=== PATIENT | male | born 1960 | race Caucasian/White ===

== ENCOUNTER → 2017-03-06 | Outpatient (CLI) | payer OTHER ==
[~2017-03-06] MED LIST: ALBU6.7H INH; ALPR0.5T99 PO; AMIT25TA20 PO; ATEN1TAB73 PO; BACL20TA PO; CLON.1 PO; DUONI NEB; PERC5TAB12 PO; SYMB80AE NEB; ZOCO40TA PO
--- NOTE | 2017-03-09 10:41 | RSPPFT ---
DATE OF PROCEDURE: 03/06/17 COMMENTS: Spirometry shows FVC of 2.0 at 43% of predicted, FEV1 of 0.6 at 18%, FEV1/FVC ratio is decreased. Flow is decreased at FEF 25, FEF 50, FEF 75 and FEF 25-75. There is no response after bronchodilator treatment. Lung volumes show residual volume is increased. TLC is increased. Flow volume loop indicates an obstructive pattern. 6-minute walk test shows de-saturation. IMPRESSION: 1. Very severe obstructive lung disease. 2. No response after bronchodilator treatment. 3. Lung volumes show hyperinflation and air trapping. 4. 6-minute walk test shows de-saturation.
== END ==
LOC: PHRSP 10:28
PROVIDERS: ATTEND Specialist
DX: J44.9 Chronic obstructive pulmonary disease, unspecified (principal)
CPT/HCPCS: 94060; 94620; 94726; 94729

== ENCOUNTER 2017-04-10 09:50 | Emergency (ER) | payer OTHER ==
[~2017-04-10] VITALS: Ht 177.8 cm; Wt 83.0 kg
[2017-04-10 09:52] VITALS: BP 170/101; PULSE 131; RESP 20; TEMP 98.5; O2SAT 97
[2017-04-10 10:04] VITALS: BP 138/103; PULSE 137; RESP 22; TEMP 98.6; O2SAT 98
[2017-04-10 10:07] VITALS: BP 138/103; PULSE 134
[2017-04-10] MEDS ORDERED: SODIUM CHLORIDE 0.9% FLUSH 10 ML FLUSH IVF PRN (10:15)
[2017-04-10] MEDS ORDERED: SODIUM CHLORID 0.9% 500 ML INJ 500 ML IV ONE (10:30)
[2017-04-10] MEDS ORDERED: METOPROLOL TARTRATE 5 MG/5 ML VIAL IV PUSH ONE (10:30)
--- NOTE | 2017-04-10 10:33 | PD ---
HPI Chief Complaint: palpitations Time Seen by Provider: 10:04 Travel History International Travel<30 days: No Contact w/Intl Traveler<30days: No Traveled to known affect area: No History of Present Illness HPI 57-year-old male states he had a long walk to pulmonary rehabilitation and when he got there his heart rate was significantly elevated in the 150s so they wanted him to come here. He states he has not taken his blood pressure medication yet this morning. He denies active complaints now that he is in bed. He states when his heartbeat felt fast he could feel it. He states that he specifically has no shortness of breath, chest pain, increase in his inhaler use or other complaints at this moment. He states that he is working on getting evaluated for a lung transplant. He states he's on 2 L of oxygen most the time. Severity is 150s. Duration is unknown. PFSH Past Medical History Arthritis: Yes Depression: Yes High Cholesterol: Yes COPD: Yes Diminished Hearing: No Hypertension: Yes Musculoskeletal: Yes (DJD, lumbar radiculopathy) Respiratory: Yes Past Surgical History Abdominal Surgery: Yes (COLONOSCOPY - SIGMOID POLYPS) AICD: No Joint Replacement: No Oral Surgery: Yes (SINUS PAPILLOMA REMOVED) Pacemaker: No Other Surgery: Yes (TUMOR REMOVED FROM SINUS AREA 02/12/12) Social History Alcohol Use: No Tobacco Use: No (pt states he quit 6 mths ago) Substance Use: No Allergies-Medications (Allergen,Severity, Reaction): Coded Allergies: Aspirin (Verified Allergy, Unknown, 04/10/17) Effexor (Verified Adverse Reaction, Severe, SEVERE DEPRESSION, 08/01/15) Reported Meds & Prescriptions Reported Meds & Active Scripts Active Review of Systems Except as stated in HPI: all other systems reviewed are Neg Physical Exam Narrative GENERAL: Well-nourished, well-developed patient. SKIN: Warm and dry. HEAD: Normocephalic and atraumatic. EYES: No injection or drainage. ENT: No nasal drainage noted. NECK: Supple, trachea midline. CARDIOVASCULAR: Tachycardic rate and regular rhythm RESPIRATORY: Breath sounds equal bilaterally. No accessory muscle use. GASTROINTESTINAL: Abdomen soft, non-tender, nondistended. EXTREMITIES: No edema. NEUROLOGICAL: Awake and alert. Moves all extremities. Normal speech. Data Data Last Documented VS Vital Signs Date Time Temp Pulse Resp B/P Pulse Ox O2 Delivery O2 Flow Rate FiO2 04/10/17 12:48 99 04/10/17 12:17 113 145/92 04/10/17 12:17 Nasal Cannula 2 04/10/17 11:20 22 04/10/17 10:04 98.6 Orders Electrocardiogram (04/10/17 10:09) Ckmb (Isoenzyme) Profile (04/10/17 10:09) Complete Blood Count With Diff (04/10/17 10:09) Comprehensive Metabolic Panel (04/10/17 10:09) Magnesium (Mg) (04/10/17 10:09) Prothrombin Time / Inr (Pt) (04/10/17 10:09) Act Partial Throm Time (Ptt) (04/10/17 10:09) Troponin I (04/10/17 10:09) Chest, Single Ap (04/10/17 10:09) Ecg Monitoring (04/10/17 10:09) Bilateral Bp Monitoring (04/10/17 10:09) Iv Access Insert/Monitor (04/10/17 10:09) Oximetry (04/10/17 10:09) Sodium Chloride 0.9% Flush (Ns Flush) (04/10/17 10:15) Lactic Acid Sepsis Protocol (04/10/17 10:12) Urinalysis - C+S If Indicated (04/10/17 10:12) Blood Culture (04/10/17 10:12) Sodium Chlorid 0.9% 500 Ml Inj (Ns 500 M (04/10/17 10:30) Metoprolol Tartrate Inj (Lopressor Inj) (04/10/17 10:30) Thyroid Stimulating Hormone (04/10/17 10:24) Electrocardiogram (04/10/17 ) Labs Laboratory Tests Test 04/10/17 04/10/17 10:20 11:25 White Blood Count 15.9 TH/MM3 Red Blood Count 4.51 MIL/MM3 Hemoglobin 13.7 GM/DL Hematocrit 40.1 % Mean Corpuscular Volume 88.9 FL Mean Corpuscular Hemoglobin 30.3 PG Mean Corpuscular Hemoglobin 34.1 % Concent Red Cell Distribution Width 14.2 % Platelet Count 239 TH/MM3 Mean Platelet Volume 8.4 FL Neutrophils (%) (Auto) 88.4 % Lymphocytes (%) (Auto) 6.3 % Monocytes (%) (Auto) 4.8 % Eosinophils (%) (Auto) 0.3 % Basophils (%) (Auto) 0.2 % Neutrophils # (Auto) 14.1 TH/MM3 Lymphocytes # (Auto) 1.0 TH/MM3 Monocytes # (Auto) 0.8 TH/MM3 Eosinophils # (Auto) 0.0 TH/MM3 Basophils # (Auto) 0.0 TH/MM3 CBC Comment DIFF FINAL Differential Comment Prothrombin Time 9.9 SEC Prothromb Time International 0.9 RATIO Ratio Activated Partial 26.6 SEC Thromboplast Time Sodium Level 138 MEQ/L Potassium Level 3.4 MEQ/L Chloride Level 104 MEQ/L Carbon Dioxide Level 25.9 MEQ/L Anion Gap 8 MEQ/L Blood Urea Nitrogen 16 MG/DL Creatinine 0.80 MG/DL Estimat Glomerular Filtration 99 ML/MIN Rate Random Glucose 105 MG/DL Lactic Acid Level 2.0 mmol/L Calcium Level 8.6 MG/DL Magnesium Level 1.6 MG/DL Total Bilirubin 0.4 MG/DL Aspartate Amino Transf 9 U/L (AST/SGOT) Alanine Aminotransferase 24 U/L (ALT/SGPT) Alkaline Phosphatase 76 U/L Total Creatine Kinase 39 U/L Troponin I LESS THAN 0.02 NG/ML Total Protein 7.0 GM/DL Albumin 3.8 GM/DL Thyroid Stimulating Hormone 2.260 uIU/ML 3rd Gen Urine Color YELLOW Urine Turbidity CLEAR Urine pH 6.0 Urine Specific [place] 1.005 Urine Protein NEG mg/dL Urine Glucose (UA) NEG mg/dL Urine Ketones NEG mg/dL Urine Occult Blood TRACE Urine Nitrite NEG Urine Bilirubin NEG Urine Urobilinogen LESS THAN 2.0 MG/DL Urine Leukocyte Esterase NEG Urine RBC 2 /hpf Urine WBC LESS THAN 1 /hpf Microscopic Urinalysis Comment CATH-CULT NOT IND MDM Medical Decision Making Medical Screen Exam Complete: Yes Emergency Medical Condition: Yes Medical Record Reviewed: Yes (past history confirmed) Interpretation(s) EKG is sinus tachycardia at 135 without STEMI criteria Repeat EKG is sinus tachycardia [address] segment elevation or depression or consecutive T-wave inversion CBC & BMP Diagram 04/10/17 10:20 Last 24 hours Impressions Chest X-Ray 04/10/17 1009 Signed Impressions: Service Date/Time: Monday, April 10, 2017 10:37 - CONCLUSION: Normal examination except for chronic diffuse interstitial lung disease. Boy Jordan MD Differential Diagnosis Anemia, renal failure, electrolyte abnormality, hyperthyroidism, dehydration, A. fib, SVT Narrative Course Will check blood work, chest x-ray, EKG and dose with IV fluids and metoprolol and reevaluate Blood work, chest x-ray without emergent findings, mild leukocytosis. Heart rate has improved and patient wanting to go home still asymptomatic. We'll discuss with his primary doctor Patient denies any new complaints and states that they are feeling better. Patient happy with care, all questions answered. Patient knows that follow up is incumbent on them and to return to the emergency room immediately if new or worsening symptoms develop. Patient given strict return precautions, vitals reviewed and are normal, agrees to further workup as an outpatient. Physician Communication Physician Communication dr doshi states to place on coreg 3.125mg po bid for 2 weeks and he will see in the office Diagnosis Primary Impression: Tachycardia Patient Instructions: General Instructions Additional Instructions: return as needed, follow with primary this week, keep blood pressure and heart rate log Med/Other Pt SpecificInfo: Prescription(s) given Disposition: DISCHARGE HOME Condition: Stable Shauna Cohen MD Apr 10, 2017 10:32 Primary Impression: Tachycardia Patient Instructions: General Instructions Additional Instructions: return as needed, follow with primary this week, keep blood pressure and heart rate log Med/Other Pt SpecificInfo: Prescription(s) given Scripts Carvedilol (Coreg)3.125 Mg Tab3.125 Mg PO BID 14 Days Ref 0 Prov:Shauna Cohen MD 04/10/17 Disposition: DISCHARGE HOME Condition: Stable Shauna Cohen MD Apr 10, 2017 10:32
[2017-04-10 10:51] VITALS: BP 138/88; PULSE 106; RESP 18; O2SAT 97
[2017-04-10 10:57] LABS: AUTOMATED NEUTROPHIL # 14.1 TH/MM3 (1.8-7.7); BASOPHIL % 0.2 % (0.0-2.0); EOSINOPHIL % 0.3 % (0.0-4.0); HEMATOCRIT 40.1 % (39.0-51.0); HEMO FLAGS DIFF FINAL; LYMPH % 6.3 % (9.0-44.0); MEAN CELL VOLUME 88.9 FL (80.0-100.0); MEAN CORPUSCULAR HEMOGLOBIN 30.3 PG (27.0-34.0); MEAN CORPUSCULAR HGB CONC 34.1 % (32.0-36.0); MONO % 4.8 % (0.0-8.0); NEUT % 88.4 % (16.0-70.0); PLATELET COUNT 239 TH/MM3 (150-450); RED BLOOD COUNT 4.51 MIL/MM3 (4.50-5.90); RED CELL DISTRIBUTION WIDTH 14.2 % (11.6-17.2); WHITE BLOOD COUNT 15.9 TH/MM3 (4.0-11.0)
[2017-04-10 11:11] LABS: APTT (PATIENT) 26.6 SEC (24.3-30.1); INTERNATIONAL NORMALIZED RATIO 0.9 RATIO; PROTHROMBIN TIME - PATIENT 9.9 SEC (9.8-11.6)
[2017-04-10 11:15] LABS: ANION GAP 8 MEQ/L (5-15); AST (GOT) 9 U/L (15-37); BICARBONATE 25.9 MEQ/L (21.0-32.0); BLOOD UREA NITROGEN 16 MG/DL (7-18); CHLORIDE 104 MEQ/L (98-107); GLOMERULAR FILTRATION RATE 99 ML/MIN (>89); MAGNESIUM 1.6 MG/DL (1.5-2.5); POTASSIUM 3.4 MEQ/L (3.5-5.1); SODIUM (NA) 138 MEQ/L (136-145)
[2017-04-10 11:16] LABS: ALT (GPT) 24 U/L (12-78)
[2017-04-10 11:19] LABS: ALKALINE PHOSPHATASE 76 U/L (45-117); TOTAL BILIRUBIN ADULT 0.4 MG/DL (0.2-1.0)
[2017-04-10 11:20] VITALS: BP 145/72; PULSE 121; RESP 22; O2SAT 93
[2017-04-10 11:20] LABS: CREATINE KINASE 39 U/L (39-308)
--- NOTE | 2017-04-10 11:21 | RADRPT ---
EXAM DATE/TIME: 04/10/2017 10:37 [facility] COMPARISON: CHEST PA & LAT, February 07, 2014, 21:02. INDICATIONS : Chest pain. MEDICAL HISTORY : None. SURGICAL HISTORY : None. ENCOUNTER: Initial ACUITY: 3 weeks PAIN SCORE: 3/10 LOCATION: Left middle chest FINDINGS: A single view of the chest demonstrates the lungs to be symmetrically aerated without evidence of mas s, infiltrate or effusion. The cardiomediastinal contours are unremarkable. Osseous structures are intact. CONCLUSION: Normal examination except for chronic diffuse interstitial lung disease. Boy Jordan MD on April 10, 2017 at 11:19 Board Certified Radiologist. This report was verified electronically.
[2017-04-10 12:01] LABS: BLOOD, URINE TRACE (NEG); GLUCOSE,URINE NEG (NEG); KETONE, URINE NEG (NEG); NITRITE,URINE NEG (NEG); URINE COLOR YELLOW (YELLW/STRAW)
[2017-04-10 12:02] LABS: COMMENT (UR) CATH-CULT NOT IND; CULTURE IF INDICATED CATH CULTURE NOT IND
[2017-04-10 12:17] VITALS: BP 145/92; PULSE 113; O2SAT 98
[2017-04-10] MEDS ORDERED: CARV3.125 PO (12:40)
--- NOTE | 2017-04-10 13:58 | EKG ---
Date Performed: 04/10/2017 Time Performed: 10:02:53 PTAGE: 57 years EKG: PROBABLE SINUS TACHYCARDIA ABNORMAL RHYTHM ECG PREVIOUS TRACING : 02/07/2014 20.55 Compared to the previous tracing, sinus tachycardia has rep laced normal Sinus rhythm DOCTOR: Rj Benedict Interpretating Date/Time 04/10/2017 13:57:21
--- NOTE | 2017-04-11 10:28 | EKG ---
Date Performed: 04/10/2017 Time Performed: 12:24:40 PTAGE: 57 years EKG: SINUS TACHYCARDIA ABNORMAL RHYTHM ECG PREVIOUS TRACING : 04/10/2017 10.02 DOCTOR: Boy Strickland Interpretating Date/Time 04/11/2017 10:26:50
== END 2017-04-10 13:13 | disposition home or self-care (01) ==
LOC: NEPC 09:50
DX: R00.0 Tachycardia, unspecified (principal); R94.31 Abnormal electrocardiogram [ECG] [EKG]; F32.9 Major depressive disorder, single episode, unspecified; E78.00 Pure hypercholesterolemia, unspecified; J44.9 Chronic obstructive pulmonary disease, unspecified; I10 Essential (primary) hypertension; M13.88 Other specified arthritis, other site; Z99.81 Dependence on supplemental oxygen; Z88.8 Allergy status to other drugs, medicaments and biological substances
CPT/HCPCS: 71010; 80053; 81001; 82550; 83605; 83735; 84443; 84484; 85025; 85610; 85730; 87040; 93005; 96374; 99285; J7040

== ENCOUNTER 2018-07-27 06:46 | Inpatient (IN) ==
[2018-07-27] MEDS ORDERED: Naloxone Inj 0.4 MG/ML Vial ONE (07:24)
[2018-07-27] MEDS ORDERED: Naloxone Inj 2 MG/2 ML Vial IV.PUSH ONE (07:24)
--- NOTE | 2018-07-27 07:48 | ED ---
HPI General Chief Complaint: Overdose Stated Complaint: Poss Overdose, POPD Time Seen by Provider: 07/27/18 07:43 Source: EMS Mode of arrival: EMS Limitations: altered mental status History of Present Illness HPI Narrative: 58-year-old male patient with history of COPD presents to the ER today brought in by EMS because he had told family that he was going to harm himself, and when they checked up on him, he was obtunded, was given Narcan and was arousable. He was once again very unarousable in the ER and was given Narcan again in the ER, became arousable, admits that he had taken Xanax and oxycodone. He has been [place] acted by EMS. Related Data Allergies Allergy/AdvReac Type Severity Reaction Status Date / Time aspirin Allergy Unknown Bleeding Verified 07/27/18 06:53 venlafaxine AdvReac Severe SEVERE Verified 07/27/18 06:53 DEPRESSION Review of Systems ROS Unobtainable ROS Unobtainable: unobtainable due to mental status PMFSH Medical History Medical History COPD (chronic obstructive pulmonary disease) (Acute) Chronic back pain (Acute) Social History Social History Substance History: No History of Abuse Smoking Status: Current every day smoker Tobacco Type: Cigarettes How Often Do You Have a Drink Containing Alcohol: Monthly or less Recent Travel in [facility] within the Last 8 Weeks: No Recent Out of Country Travel within the Last 8 Weeks: No Immunization History Tetanus Immunization: Unsure Exam Narrative Exam Narrative: GENERAL: Well-developed middle-age male patient currently and moderate distress, awake but lethargic, disoriented. SKIN: Focused skin assessment warm/dry. HEAD: Atraumatic. Normocephalic. EYES: Pupils equal and round. No scleral icterus. No injection or drainage. ENT: No nasal bleeding or discharge. Mucous membranes pink and moist. Airway is intact. NECK: Trachea midline. No JVD. CARDIOVASCULAR: Regular rate and rhythm. No murmur appreciated. RESPIRATORY: No accessory muscle use. Clear to auscultation. Breath sounds equal bilaterally. GASTROINTESTINAL: Abdomen soft, non-tender, nondistended. Hepatic and splenic margins not palpable. MUSCULOSKELETAL: No obvious deformities. No clubbing. No cyanosis. No edema. NEUROLOGICAL: Awake and lethargic. No obvious cranial nerve deficits. Motor grossly within normal limits. Slurred speech. PSYCHIATRIC: Depressed mood and affect; insight and judgment poor. Course Initial Documented Vital Signs Pulse Rate 91 H 07/27/18 06:50 Respiratory Rate 14 07/27/18 06:50 Blood Pressure 127/81 07/27/18 06:50 Pulse Oximetry 97 07/27/18 06:50 Last Documented Vital Signs Pulse Rate 98 H 07/27/18 06:53 Respiratory Rate 14 07/27/18 06:53 Blood Pressure 108/60 07/27/18 06:53 Pulse Oximetry 98 07/27/18 07:44 Medical Decision Making MDM Narrative Medical decision making narrative: Patient was given an additional dose of Narcan in the ER. And he is arousable after that, lab work was fairly unremarkable. Vital signs are stable in the ER. EKG did not show any signs of interval changes. Case had been discussed with [facility] who is requesting q. hourly EKGs. He will need to be monitored more closely. Case is discussed with Dr. Cerda and he will be placed in the ICU for admission. Aggregate critical care time was 30 minutes. Time to perform other separately billable procedures was not included in the critical care time. My time did not include minutes spent treating any other patients simultaneously or on activities that did not directly contribute to the patient's treatment. The services I provided to this patient were to treat and/or prevent clinically significant deterioration that could result in: Worsening respiratory distress, respiratory arrest, dysrhythmias, I provided critical care services requiring my management, as noted below: Chart data review, documentation time, medication orders and management, vital sign assessments/reviewing monitor data, ordering and reviewing lab tests, ordering and interpreting/reviewing x-rays and diagnostic studies, care of the patient and discussion of the patient with the admitting physicians. Medical Screen Exam Complete: Yes Emergency Medical Condition: Yes Differential Diagnosis Differential Diagnosis: Intentional overdose of opiates and benzodiazepines, rule out coingestions Lab Data Lab results reviewed: Yes I reviewed the patient's lab results. Result diagrams: 07/27/18 07:54 07/27/18 07:54 Lab Results 11/03/18 11/03/18 11/03/18 Range/Units 07:54 07:54 07:54 WBC 6.7 (4.0-11.0) th/mm3 RBC 4.14 L (4.50-5.90) mil/mm3 Hgb 12.4 L (13.0-17.0) gm/dL Hct 35.6 L (39.0-51.0) % MCV 86.0 (80.0-100.0) fL MCH 29.9 (27.0-34.0) pg MCHC 34.8 (32.0-36.0) % RDW 14.1 (11.6-17.2) % Plt Count 288 (150-450) th/mm3 MPV 7.9 (7.0-11.0) fL Neut % (Auto) 70.5 H (16.0-70.0) % Lymph % (Auto) 17.3 (9.0-44.0) % [place] % (Auto) 7.8 (0.0-8.0) % Eos % (Auto) 4.0 (0.0-4.0) % Baso % (Auto) 0.4 (0.0-2.0) % Neut # (Auto) 4.8 (1.8-7.7) th/mm3 Lymph # (Auto) 1.2 (1.0-4.8) th/mm3 [place] # (Auto) 0.5 (0.0-0.9) th/mm3 Eos # (Auto) 0.3 (0.0-0.4) th/mm3 Baso # (Auto) 0.0 (0.0-0.2) th/mm3 WBC Differential . Differential Comment Auto diff final Sodium 141 (136-145) meq/L Potassium 4.0 (3.5-5.1) meq/L Chloride 106 (98-107) meq/L Carbon Dioxide 28.4 (21.0-32.0) meq/L Anion Gap 7 (5-15) meq/L BUN 16 (7-18) mg/dL Creatinine 0.76 (0.60-1.30) mg/dL Estimated GFR Greater than 89 (>89) mL/min Random Glucose 95 (74-106) mg/dL Calcium 8.6 (8.5-10.1) mg/dL Total Bilirubin 0.3 (0.2-1.0) mg/dL AST 9 L (15-37) U/L ALT 14 (12-78) U/L Alkaline Phosphatase 68 (45-117) U/L Total Protein 7.3 (6.4-8.2) g/dL Albumin 3.6 (3.4-5.0) g/dL Salicylates Less than 1.7 L (2.8-20.0) mg/dL Acetaminophen 20.9 (10.0-30.0) mcg/mL Serum Alcohol Less than 3 (0-5) mg/dL ECG Data Attestation: I personally reviewed and interpreted this ECG as follows: Interpretation: EKG shows NSR, no ST elevation or depression, and no arrhythmias. No significant T-wave inversions.. No signs of QT prolongation. QRS is 95 ms. Discharge Plan Discharge Details Anticipated Discharge Date: 07/27/18 Physicians Team ED Provider: Sloane Melchor Discharge Interventions Interventions: Vital Signs Last Done: 07/27/18 06:53 Status ED Status: With Doctor
[2018-07-27 08:16] LABS: Baso % (Auto) 0.4 % (0.0-2.0); Eos # (Auto) 0.3 th/mm3 (0.0-0.4); Hematocrit 35.6 % (39.0-51.0); Hemoglobin 12.4 gm/dL (13.0-17.0); Lymph # (Auto) 1.2 th/mm3 (1.0-4.8); Lymph % (Auto) 17.3 % (9.0-44.0); Mean Corpuscular HGB Conc 34.8 % (32.0-36.0); Mean Corpuscular Hemoglobin 29.9 pg (27.0-34.0); Mean Platelet Volume 7.9 fL (7.0-11.0); Mono # (Auto) 0.5 th/mm3 (0.0-0.9); Mono % (Auto) 7.8 % (0.0-8.0); Neut # (Auto) 4.8 th/mm3 (1.8-7.7); Neut % (Auto) 70.5 % (16.0-70.0); Platelet Count 288 th/mm3 (150-450); Red Blood Count 4.14 mil/mm3 (4.50-5.90); Red Cell Distribution Width 14.1 % (11.6-17.2); White Blood Count 6.7 th/mm3 (4.0-11.0)
[2018-07-27 08:29] LABS: Acetaminophen 20.9 mcg/mL (10.0-30.0); Alanine Aminotransferase 14 U/L (12-78); Albumin 3.6 g/dL (3.4-5.0); Anion Gap 7 meq/L (5-15); Aspartate Aminotransferase 9 U/L (15-37); Blood Urea Nitrogen 16 mg/dL (7-18); Calcium 8.6 mg/dL (8.5-10.1); Carbon Dioxide 28.4 meq/L (21.0-32.0); Chloride 106 meq/L (98-107); Glomerular Filtration Rate Greater Than 89 mL/min (>89); Glucose,Random 95 mg/dL (74-106); Sodium 141 meq/L (136-145)
[2018-07-27 08:33] LABS: Alkaline Phosphatase 68 U/L (45-117); Total Protein 7.3 g/dL (6.4-8.2)
[2018-07-27] MEDS ORDERED: Bisacodyl 10 MG Supp RECTAL PRN (10:00)
[2018-07-27 10:07] LABS: Amphetamine Screen,Urine Neg (Neg); Barbiturate Screen,Urine Neg (Neg); Cannabinoid Screen,Urine Neg (Neg); Cocaine Screen,Urine Neg (Neg)
[2018-07-27 10:23] LABS: Opiate Screen,Urine Neg (Neg)
[2018-07-27] MEDS: Sod Chloride 0.9% Inj 1,000 ML IV.CONT SCH ×2 (10:59→21:43)
[2018-07-27] MEDS ORDERED: Naloxone Inj 0.4 MG/ML Vial IV.PUSH PRN (13:00)
[2018-07-27] MEDS ORDERED: Naloxone Inj 0.4 MG/ML Vial IV.PUSH ONE (13:00)
--- NOTE | 2018-07-27 16:06 | P.HPIM ---
History of Present Illness Primary Care Physician: Narinder Thayer MD, PhD History of Present Illness: Pt is 58 yo with severe 02 dependent copd. Pt daughter says he has been evaluated at [facility] and not a Transplant candidate due to comorbidities. Pt struggles with constant back pain. He mentioned that he was going to end his life to family and around 5-6am this morning pt took around 15 percocet and 39xanax tablets. His daughter who works at the pharmacy was able to get a pretty accurate count. The feeling is he intentionally overdosed due to hopeless outlook on his medical conditions. He had narcan x 1 in EMS and 1 in ED. Each time he awakens but later goes back to sleep. When we moved him to ICU his RR was 6 and after narcan again he awoke for about 2hr per RN. On my arrival he was asleep and not arousable. One dose of narcan and he awoke and answered appropriatley and was able to use the yankaur suction. I spoke to his daughter by phone and pt is full code a this time. PMH: severe o2 dep copd htn chronic back pain. s/p surgery. anxiety/depression fh: NC sh: quit etoh 20yrs ago. prior to that etoh excess quti tob 1 yr ago. Diagnosis (1) Suicide attempt by multiple drug overdose: (2) COPD (chronic obstructive pulmonary disease): Inpatient Certification Inpatient Certification: I certify that the inpatient services were ordered in accordance with Medicare regulations governing the order. This includes certification that hospital inpatient services are reasonable and necessary and in the case of services not specified as inpatient-only under 42 CFR 419.22(n), that they are appropriately provided as inpatient services in accordance to with the 2-midnight benchmark under 43 CFR 412.3(e) Estimated Total Length of Stay (Days): 3 Plans for Post Hospital Care: Not yet determined Medications and Allergies Allergies Allergy/AdvReac Type Severity Reaction Status Date / Time aspirin Allergy Unknown Bleeding Verified 07/27/18 06:53 venlafaxine AdvReac Severe SEVERE Verified 07/27/18 06:53 DEPRESSION Home Medications Medication Instructions Recorded Confirmed Type albuterol sulfate [Ventolin HFA] 1 puff INHALATION Q4-6H PRN 07/27/18 07/27/18 History alprazolam [Xanax] 0.5 mg PO BID 07/27/18 07/27/18 History amitriptyline 100 mg PO DAILY 07/27/18 07/27/18 History amlodipine 5 mg PO DAILY 07/27/18 07/27/18 History azithromycin 250 mg PO DAILY 07/27/18 07/27/18 History baclofen 20 mg PO TID 07/27/18 07/27/18 History clonidine HCl 0.1 mg PO HS 07/27/18 07/27/18 History diltiazem HCl 120 mg PO DAILY 07/27/18 07/27/18 History fluticasone-vilanterol [Breo 1 inh INHALATION DAILY 07/27/18 07/27/18 History Ellipta] gabapentin 100 mg PO BID 07/27/18 07/27/18 History omeprazole 20 mg PO DAILY 07/27/18 07/27/18 History oxycodone-acetaminophen 1 tab PO QID PRN 07/27/18 07/27/18 History simvastatin 40 mg PO QPM 07/27/18 07/27/18 History Active Medications: Active Medications Acetaminophen (Tylenol) 650 mg PO Q4H PRN PRN Reason: Temp > 100.4 Al Hydroxide/Mg Hydroxide (Milk Of Magnesia Liq) 30 ml PO Q12H PRN PRN Reason: Mild Constipation Bisacodyl (Dulcolax Supp) 10 mg RECTAL DAILY PRN PRN Reason: SEVERE CONSITIPATION Sodium Chloride (Ns Inj) 1,000 mls @ 100 mls/hr IV.CONT .Q10H [facility] Last Admin: 07/27/18 10:59 Dose: 100 mls/hr Lactulose (Lactulose Liq) 30 ml PO DAILY PRN PRN Reason: SEVERE CONSITIPATION Naloxone HCl (Narcan Inj) 0.4 mg IV.PUSH Q2M PRN PRN Reason: SEDATION Ondansetron HCl (Zofran Inj) 4 mg IV.PUSH Q6H PRN PRN Reason: NAUSEA OR VOMITING Senna/Docusate Sodium (Jayde-Colace) 1 tab PO BID [facility] Sennosides (Senokot) 17.2 mg PO Q12H PRN PRN Reason: Moderate Constipation Sodium Chloride (Ns Flush) 2 ml IV.FLUSH PRN PRN PRN Reason: FLUSH AFTER USING IV ACCESS Physical Exam Vital signs: Last Vital Signs Temp 97.6 F 07/27/18 13:00 Pulse 79 07/27/18 13:00 Resp 6 L 07/27/18 13:00 BP 117/71 07/27/18 13:00 Pulse Ox 95 07/27/18 14:41 Narrative: not arousable initiallyi after narcan. awake with a cough. able to use the yankaur able to orient him. still sleepy lung course bs heart reg abd s/nt ext no edema Results Labs CBC & Chem 7: 07/27/18 07:54 07/27/18 07:54 Caprini VTE Risk Assessment Caprin VTE Risk Assessment: Moderate/High Risk (score >= 2) Caprini Risk Assessment Model: Point Value = 1 Point Value = 2 Point Value = 3 Point Value = 5 Age 41-60 Minor surgery BMI > 25 kg/m2 Swollen legs Varicose veins or History of unexplained or recurrent spontaneous Oral contraceptives or hormone replacement Sepsis (< 1 month) Serious lung disease, including pneumonia (< 1 month) Abnormal pulmonary function Acute myocardial infarction Congestive heart failure (< 1 month) History of inflammatory bowel disease Medical patient at bed rest Age 61-74 Arthroscopic surgery Major open surgery (> 45 min) Laparoscopic surgery (> 45 min) Malignancy Confined to bed (> 72 hours) Immobilizing plaster cast Central venous access Age >= 75 History of VTE Family history of VTE Factor V Leiden Prothrombin [id number] Lupus anticoagulant Anticardiolipin antibodies Elevated serum homocysteine Heparin-induced thrombocytopenia Other congenital or acquired thrombophilia Stroke (< 1 month) Elective arthroplasty Hip, pelvis, or leg fracture Acute spinal cord injury (< 1 month) Prophylaxis Regimen: Total Risk Factor Score Risk Level Prophylaxis Regimen 0-1 Low Early ambulation 2 Moderate Order ONE of the following: *Sequential Compression Device (SCD) *Heparin 5000 units SQ BID 3-4 Higher Order ONE of the following medications: *Heparin 5000 units SQ TID *Enoxaparin/Lovenox 40 mg SQ daily (WT < 150 kg, CrCl > 30 mL/min) *Enoxaparin/Lovenox 30 mg SQ daily (WT < 150 kg, CrCl > 10-29 mL/min) *Enoxaparin/Lovenox 30 mg SQ BID (WT < 150 kg, CrCl > 30 mL/min) AND/OR *Sequential Compression Device (SCD) 5 or more Highest Order ONE of the following medications: *Heparin 5000 units SQ TID (Preferred with Epidurals) *Enoxaparin/Lovenox 40 mg SQ daily (WT < 150 kg, CrCl > 30 mL/min) *Enoxaparin/Lovenox 30 mg SQ daily (WT < 150 kg, CrCl > 10-29 mL/min) *Enoxaparin/Lovenox 30 mg SQ BID (WT < 150 kg, CrCl > 30 mL/min) AND *Sequential Compression Device (SCD) Assessment and Plan Assessment (1) Suicide attempt by multiple drug overdose: Code(s): T50.902A - Poisoning by unspecified drugs, medicaments and biological substances , intentional self-harm, initial encounter Status: Acute (2) COPD (chronic obstructive pulmonary disease): Code(s): J44.9 - Chronic obstructive pulmonary disease, unspecified Status: Acute Plan 1. Suicide attempt. Overdose on 15 percocet and 39 tablets 6am 2. severe end stage o2 dependent copd. not transplant candidate 3. severe chronic back pain 4. htn Monitor in ICU telemetry cont ivf npo for now due to sedation dvt prophylaxis narcan as needed. schedule nebs prn iv bp control until able to take po.
--- NOTE | 2018-07-27 18:22 | P.CONPSY ---
Provisional Diagnosis Admission Date: July 27, 2018 09:00 History of Present Illness Service: psychiatry Consult date: 07/27/18 Primary Care Provider: Narinder Thayer MD, PhD Chief Complaint: suicide attempt History of Present Illness: This is a request for a psychiatric consult. Documentation was reviewed, case was discussed with nursing and patient was evaluated. Patient was with his in the room will provide collateral information. Due to recent stressors patient had an intentional overdose cassette and 39 Xanax pills. At this time, he is in the intensive care unit. He has waxing and waning consciousness and is being treated by the medical team. Patient is oriented x1 and was able to follow the interview but has difficulty answering questions. He is motivated to get better. His main stressors include medical comorbidities. Patient has severe COPD which has recently limited his mobility. He also found out is not a candidate for lung transplant. He is also developed an acute intractable pain. notices he has been depressed but not any more so than usual and he had not made any suicidal statements to her. Today, patient says he does not want to hurt himself Past psych: denies a history of inpatient or outpatient psychiatric treatment. He was on Xanax for anxiety and may have been patient's for anxiety or depression from his primary care doctor. Past medical: COPD, pinched nerve, see chart Past Famhx: Denies Past Social: Patient [facility] the [facility] [employer] [employer] - History History Provided By: Patient - Medical History Medical History: Medical History (Last Reviewed 07/27/18 @ 18:20 by Percy Morris DO) COPD (chronic obstructive pulmonary disease) Chronic back pain - Tobacco History Tobacco Use In Past 30 Days: Yes Smoking Status: Current every day smoker Tobacco Type: Cigarettes - Alcohol History How Often Do You Have a Drink Containing Alcohol: Monthly or less - Substance Use History Substance History: No History of Abuse - Travel History Recent Travel in the [place] Within the Last 8 Weeks: No Recent Travel Out of the Country Within the Last 8 Weeks: No - Immunization History Tetanus Immunization: Unsure Medications and Allergies Active Medications: Active Medications Acetaminophen (Tylenol) 650 mg PO Q4H PRN PRN Reason: Temp > 100.4 Al Hydroxide/Mg Hydroxide (Milk Of Magnesia Liq) 30 ml PO Q12H PRN PRN Reason: Mild Constipation Albuterol (Duoneb Neb ([facility])) 1 ampul NEB Q4HR NEB PEPE Bisacodyl (Dulcolax Supp) 10 mg RECTAL DAILY PRN PRN Reason: SEVERE CONSITIPATION Enalaprilat (Vasotec Inj) 1.25 mg IV.PUSH Q6H PRN PRN Reason: bp > 170 Sodium Chloride (Ns Inj) 1,000 mls @ 100 mls/hr IV.CONT .Q10H PEPE Last Admin: 07/27/18 10:59 Dose: 100 mls/hr Lactulose (Lactulose Liq) 30 ml PO DAILY PRN PRN Reason: SEVERE CONSITIPATION Naloxone HCl (Narcan Inj) 0.4 mg IV.PUSH Q2M PRN PRN Reason: SEDATION Last Admin: 07/27/18 16:08 Dose: 0.4 mg Nicotine (Habitrol 14 Mg Patch.24 Hr) 1 patch T-DERMAL DAILY [facility] Ondansetron HCl (Zofran Inj) 4 mg IV.PUSH Q6H PRN PRN Reason: NAUSEA OR VOMITING Pantoprazole Sodium (Protonix Inj) 40 mg IV.PUSH Q24H [facility] Patch Removal (Remove Old Patch) 1 each T-DERMAL DAILY [facility] Senna/Docusate Sodium (Jayde-Colace) 1 tab PO BID [facility] Sennosides (Senokot) 17.2 mg PO Q12H PRN PRN Reason: Moderate Constipation Sodium Chloride (Ns Flush) 2 ml IV.FLUSH PRN PRN PRN Reason: FLUSH AFTER USING IV ACCESS Allergies Allergy/AdvReac Type Severity Reaction Status Date / Time aspirin Allergy Unknown Bleeding Verified 07/27/18 06:53 venlafaxine AdvReac Severe SEVERE Verified 07/27/18 06:53 DEPRESSION Home Medications Medication Instructions Recorded Confirmed Type albuterol sulfate [Ventolin HFA] 1 puff INHALATION Q4-6H PRN 07/27/18 07/27/18 History alprazolam [Xanax] 0.5 mg PO BID 07/27/18 07/27/18 History amitriptyline 100 mg PO DAILY 07/27/18 07/27/18 History amlodipine 5 mg PO DAILY 07/27/18 07/27/18 History azithromycin 250 mg PO DAILY 07/27/18 07/27/18 History baclofen 20 mg PO TID 07/27/18 07/27/18 History clonidine HCl 0.1 mg PO HS 07/27/18 07/27/18 History diltiazem HCl 120 mg PO DAILY 07/27/18 07/27/18 History fluticasone-vilanterol [Breo 1 inh INHALATION DAILY 07/27/18 07/27/18 History Ellipta] gabapentin 100 mg PO BID 07/27/18 07/27/18 History omeprazole 20 mg PO DAILY 07/27/18 07/27/18 History oxycodone-acetaminophen 1 tab PO QID PRN 07/27/18 07/27/18 History simvastatin 40 mg PO QPM 07/27/18 07/27/18 History Exam Vital signs: Vital Signs 07/27/18 06:50 07/27/18 06:53 07/27/18 07:44 Temperature Pulse Rate 91 H 98 H Respiratory Rate 14 14 Blood Pressure 127/81 108/60 Pulse Oximetry 97 98 98 07/27/18 11:05 07/27/18 12:20 07/27/18 13:00 Temperature 97.6 F Pulse Rate 80 79 Respiratory Rate 18 16 6 L Blood Pressure 113/69 117/71 Pulse Oximetry 97 89 L 07/27/18 14:41 07/27/18 16:00 07/27/18 16:28 Temperature 98.8 F Pulse Rate 61 81 Respiratory Rate 16 12 Blood Pressure 96/68 L Pulse Oximetry 95 97 Intake & Output 07/26/18 07/27/18 07/27/18 18:59 06:59 18:59 Weight 72.575 kg Mental Status Examination Appearance: Disheveled Consciousness: Lethargic Orientation: Person Motor Activity: Abnormal gait Speech: Slow, Stuttering Language: Other (na) Fund of Knowledge: Inadequate Attention and Concentration: Inadequate Memory: Impaired Mood: Sad Affect: Flat Thought Process & Associations: Intact Thought Content: Appropriate Hallucination Type: None Delusion Type: None Suicidal Ideation: No Suicidal Plan: No Suicidal Intention: No Homicidal Ideation: No Homicidal Plan: No Homicidal Intention: No Insight: Fair Judgment: Impulsive Assessment and Plan - Assessment (1) Depressive disorder due to another medical condition with depressive features Code(s): F06.31 - Mood disorder due to known physiological condition with depressive features Status: Acute - Plan Plan: Patient should be admitted to the psychiatric unit once he is medically cleared to begin antidepressant therapy Justification for Continued Inpatient Stay: Patient would decompensate in a less restrictive setting
[2018-07-27] MEDS: Pantoprazole Inj 40 MG Vial IV.PUSH SCH (18:37)
[2018-07-27] MEDS: Senna/Docusate Sodium 8.6/50 MG Tablet PO SCH (21:44)
[2018-07-28] MEDS: Acetaminophen 325 MG Tablet PO PRN ×3 (00:36→16:00)
[2018-07-28 07:06] LABS: Baso % (Auto) 0.4 % (0.0-2.0); Eos # (Auto) 0.1 th/mm3 (0.0-0.4); Eos % (Auto) 0.6 % (0.0-4.0); Hematocrit 35.2 % (39.0-51.0); Hemoglobin 12.1 gm/dL (13.0-17.0); Lymph # (Auto) 1.2 th/mm3 (1.0-4.8); Lymph % (Auto) 13.4 % (9.0-44.0); Mean Corpuscular HGB Conc 34.3 % (32.0-36.0); Mean Corpuscular Hemoglobin 29.8 pg (27.0-34.0); Mean Corpuscular Volume 86.8 fL (80.0-100.0); Mean Platelet Volume 7.9 fL (7.0-11.0); Mono # (Auto) 0.6 th/mm3 (0.0-0.9); Mono % (Auto) 6.7 % (0.0-8.0); Neut # (Auto) 7.1 th/mm3 (1.8-7.7); Neut % (Auto) 78.9 % (16.0-70.0); Platelet Count 265 th/mm3 (150-450); Red Blood Count 4.05 mil/mm3 (4.50-5.90); Red Cell Distribution Width 14.2 % (11.6-17.2)
[2018-07-28 07:30] LABS: Anion Gap 7 meq/L (5-15); Blood Urea Nitrogen 20 mg/dL (7-18); Calcium 8.1 mg/dL (8.5-10.1); Carbon Dioxide 28.6 meq/L (21.0-32.0); Chloride 104 meq/L (98-107); Glomerular Filtration Rate Greater Than 89 mL/min (>89); Glucose,Random 80 mg/dL (74-106); Potassium 4.2 meq/L (3.5-5.1); Sodium 140 meq/L (136-145)
[2018-07-28] MEDS: Senna/Docusate Sodium 8.6/50 MG Tablet PO SCH ×2 (09:00→21:26)
[2018-07-28] MEDS ORDERED: MethylPREDNISolone Sod Succinate Inj 125 MG/2 ML Vial IV.PUSH ONE (09:00)
[2018-07-28] MEDS: guaiFENesin 600 MG ER Tablet PO SCH ×2 (09:00→21:26)
--- NOTE | 2018-07-28 11:17 | P.PNIM ---
Subjective Interval history: begging to go home says he flared his right leg sciatica 3months ago lifting an oxygen tank. still hurts. says he won't try killing himself again. Physical Exam Vital signs: Last Vital Signs Temp 98.2 F 07/28/18 08:00 Pulse 105 H 07/28/18 09:28 Resp 16 07/28/18 09:28 BP 151/94 H 07/28/18 08:00 Pulse Ox 96 07/28/18 09:30 Narrative: oriented heart reg lung course bs abd s/nt ext no edema Results Labs CBC & Chem 7: 07/28/18 05:51 07/28/18 05:51 Assessment and Plan Assessment (1) Depressive disorder due to another medical condition with depressive features: Code(s): F06.31 - Mood disorder due to known physiological condition with depressive features Status: Acute Plan 1. Suicide attempt. Overdose on 15 percocet and 39 tablets 6am 2. severe end stage o2 dependent copd. not transplant candidate 3. severe chronic back pain 4. htn 5. depression transfer out of ICU telemetry dc ivf diet advanced dvt prophylaxis narcan as needed. schedule nebs and mucolytics trial of iv steroid x 24hr for increased pulmonary secretions and ?help with radiculopathy sx's resume some po bp meds and likely some pain meds soon Pt eager for dc home. At first says he really doesn't want to live then says I won't attempt suicide again. We discussed making an effort to gain control of his pain. We discussed hospice options. Psych eval recc. inpt psych stay. Pt says that would be "unbearable for him"
[2018-07-28] MEDS: dilTIAZem CD 120 MG Capsule PO SCH (15:57)
[2018-07-28] MEDS: Naproxen 500 MG Tablet PO SCH ×2 (15:57→21:27)
[2018-07-28] MEDS: Sod Phosphate/Sod Biphosphate (Adult) Enema 133 ML Bottle RECTAL ONE ×2 (15:58→19:57)
[2018-07-28] MEDS: Baclofen 10 MG Tablet PO SCH ×2 (15:58→21:27)
[2018-07-28] MEDS: MethylPREDNISolone Sod Succinate Inj 125 MG/2 ML Vial IV.PUSH SCH ×2 (15:59→21:26)
[2018-07-28] MEDS: Pantoprazole Inj 40 MG Vial IV.PUSH SCH (18:41)
--- NOTE | 2018-07-28 22:34 | ECG ---
Date Performed: 07/28/2018 Time Performed: 09:57:00 PTAGE: 58 years EKG: Sinus rhythm NORMAL ECG PREVIOUS TRACING : 07/27/2018 20.52 Since the previous tracing, no significant change noted DOCTOR: Rj Benedict Interpretating Date/Time 07/28/2018 22:33:01
--- NOTE | 2018-07-28 22:59 | ECG ---
Date Performed: 07/27/2018 Time Performed: 20:52:36 PTAGE: 58 years EKG: SINUS TACHYCARDIA ABNORMAL RHYTHM ECG PREVIOUS TRACING : 07/27/2018 08.04 Compared to previous tracing, rate has increased DOCTOR: Rj Benedict Interpretating Date/Time 07/28/2018 22:58:04
--- NOTE | 2018-07-28 23:56 | ECG ---
Date Performed: 07/27/2018 Time Performed: 08:04:50 PTAGE: 58 years EKG: Sinus rhythm NORMAL ECG PREVIOUS TRACING : 04/10/2017 12.24 Compared to previous tracing, rate has decreased DOCTOR: Rj Benedict Interpretating Date/Time 07/28/2018 23:55:10
[2018-07-29] MEDS ORDERED: MethylPREDNISolone Sod Succinate Inj 125 MG/2 ML Vial ONE (07:05)
[2018-07-29] MEDS: Baclofen 10 MG Tablet PO SCH ×3 (07:05→21:48)
[2018-07-29] MEDS: MethylPREDNISolone Sod Succinate Inj 125 MG/2 ML Vial IV.PUSH SCH (07:09)
[2018-07-29] MEDS: guaiFENesin 600 MG ER Tablet PO SCH ×2 (09:03→21:48)
[2018-07-29] MEDS: dilTIAZem CD 120 MG Capsule PO SCH (09:04)
[2018-07-29] MEDS: Senna/Docusate Sodium 8.6/50 MG Tablet PO SCH ×2 (09:04→21:48)
[2018-07-29] MEDS: Acetaminophen 325 MG Tablet PO PRN (12:54)
--- NOTE | 2018-07-29 13:54 | P.PNIM ---
Subjective Interval history: DRAFT NOTE Pt has NO new clinical complaints. Physical Exam Vital signs: Last Vital Signs Temp 98.2 F 07/28/18 20:00 Pulse 105 H 07/29/18 11:11 Resp 24 07/29/18 11:11 BP 134/74 07/29/18 06:00 Pulse Ox 97 07/29/18 08:03 Intake & Output 07/27/18 07/28/18 07/29/18 07/30/18 07:59 06:59 06:59 06:59 Intake Total 1500 / 1500 Output Total 3200 / 3200 Balance -1700 / -1700 Weight 72 kg Urinary Catheter Management Straight: Cath placed during this visit: yes, but has since been removed by the nurse Insertion date: 07/27/18 Insertion time: 09:39 Removal date: 07/27/18 Removal time: 09:39 Results Labs CBC & Chem 7: 07/28/18 05:51 07/28/18 05:51 Assessment and Plan (1) Depressive disorder due to another medical condition with depressive features: Code(s): F06.31 - Mood disorder due to known physiological condition with depressive features Status: Acute Plan Assessment (1) Depressive disorder due to another medical condition with depressive features: Code(s): F06.31 - Mood disorder due to known physiological condition with depressive features Status: Acute Plan 1. Suicide attempt. Overdose on 15 percocet and 39 tablets 6am 2. severe end stage o2 dependent copd. not transplant candidate 3. severe chronic back pain 4. htn 5. depression transfer out of ICU telemetry dc ivf diet advanced dvt prophylaxis narcan as needed. schedule nebs and mucolytics trial of iv steroid x 24hr for increased pulmonary secretions and ?help with radiculopathy sx's resume some po bp meds and likely some pain meds soon Pt eager for dc home. At first says he really doesn't want to live then says I won't attempt suicide again. We discussed making an effort to gain control of his pain. We discussed hospice options. Psych eval recc. inpt psych stay. Pt says that would be "unbearable for him" 07/29/18 - pain control with fentanyl transdermal 25mcg daily - Pt has advanced COPD - Pt received 3 doses of IV solumedrol, now stopped - stop mucomyst - decrease duonebs to q6h & q2h prn - resume gabapentin at 100mg TID - Case discussed at the bedside with pt/ & daughter called and updated by cell phone - all questions answered to the best of my ability. - anticipate transfer to Psychiatry unit 07/30/18 - I offered pt MRI of the lumbar spine to further evaluate his c/o neuropathic pain, but pt declined at this time. - Duonebs/Mucomyst q4h - Pt under Connors Act per Psychiatry
[2018-07-29] MEDS: Pantoprazole Inj 40 MG Vial IV.PUSH SCH (17:40)
[2018-07-30] MEDS: Baclofen 10 MG Tablet PO SCH ×3 (06:03→21:54)
[2018-07-30] MEDS: dilTIAZem CD 120 MG Capsule PO SCH (08:35)
[2018-07-30] MEDS: guaiFENesin 600 MG ER Tablet PO SCH ×2 (08:35→20:20)
[2018-07-30] MEDS: Senna/Docusate Sodium 8.6/50 MG Tablet PO SCH ×2 (08:35→20:20)
[2018-07-30] MEDS: Acetaminophen 325 MG Tablet PO PRN ×3 (10:34→20:21)
[2018-07-30] MEDS: Gabapentin 100 MG Capsule PO SCH ×2 (14:37→17:00)
--- NOTE | 2018-07-30 15:26 | P.DS ---
DS: Providers Date of admission: 07/27/18 09:00 Primary care physician: Narinder Thayer MD, PhD Consults: 07/27/18 09:36 Consult to Psychiatry Routine Consulting Provider: Percy Morris Reason for Consultation: Intentional overdose, connors acted Spoke with:: dara/suman Date Notified:: 07/27/18 Time Notified:: 09:50 Ordering Provider: RICHARD DS: Diagnosis Discharge Diagnosis (1) Depressive disorder due to another medical condition with depressive features: Status: Acute DS: Summary Suicide attempt. Overdose on 15 Percocet and 39 tablets Xanax Depression - Pt is a 58 yo male with severe 02 dependent COPD. Pt daughter says he has been evaluated at [facility] and is not a transplant candidate due to comorbidities. Pt struggles with constant back pain. He mentioned that he was going to end his life to family and around 5-6am on morning morning of admission he took around 15 Percocet and 39 Xanax tablets. His daughter who works at the pharmacy was able to get a pretty accurate count. The feeling is he intentionally overdosed due to hopeless outlook on his medical conditions. He had Narcan x 1 in EMS and 1 in ED. When he was moved him to ICU and received another dose of Narcan and he awoke and answered questions appropriately and was able to use the yankaur suction. Pt was seen by Psychiatry at admission and was Connors Acted and recommended inpt Psychiatry admission once medically stable. On 07/30/18 pt felt to be medically stable for discharge to Med Psych unit. Pt eager for dc home. We discussed hospice options due ot his end stage COPD but he is not interested at this time. The case was discussed between Dr. Moore and Dr. Calderon and he reports that he will see the pt tomorrow in the Med Psych unit to decide about whether or not to lift the Connors Act. Severe end stage o2 dependent copd, not transplant candidate - Pt was continued on schedule nebs and mucolytics. He was given a trial of iv steroid x 24hr for increased pulmonary secretions and pt had symptomatic improvement. Mucomyst was stopped on 07/29 and his Duonebs were decreased to q6h & q2h prn Severe chronic back pain - Pt was started on a fentanyl transdermal 25mcg daily patch on 07/29/18 and he was resumed on gabapentin at 100mg TID. This will be continued upon discharge. Pt was offered MRI of the lumbar spine to further evaluate his c/o neuropathic pain, but pt declined at this time. Pt will not be continued on Percocet or Xanax upon discharge. HTN - Pts BP was too low initially to resume his BP meds. When his BP was more stable he was continued on Diltiazem 120mg daily. His Norvasc can be continued upon discharge to the psych unit but with parameters to hold is SBP is less than 120. Hold on resuming his Clonidine for now. Pt will need to followup with his PCP, Dr. Thayer, upon discharge from the Psych unit Pt will need to followup with [facility] as well. Psych lifted connors act and cleared patient for DC home. Case discussed with Dr. Moore -> patient DC home. He will need to follow up with [facility] mental health. Message left with case management with Carmel Pena Time spent discussing smoking cessation with patient: more than 10 minutes Status at Discharge Functional status at discharge: independent ambulation Overall status at discharge: patient is progressing back to baseline Time Spent with Patient Total time spent providing and/or coordinating discharge services: Greater than 30 minutes Discharge Plan Discharge Disposition Patient Disposition: Discharge Home Discharge Condition Condition: Stable Discharge Order Discharge Orders: Discharge Order (Routine); Ordered 07/30/18 Ordered By: Leydi Mina Discharge Details Anticipated Discharge Date: 07/30/18 Discharge Comment: Followup with Dr. Thayer 1 week after discharge Followup with [facility] following discharge. Physicians Team Primary Care Provider: Narinder Thayer Attending Provider: August Cerda Other Providers: Percy Morris Rxs /Orders / Referrals /Forms Prescriptions: New gabapentin 100 mg Capsule 100 mg PO TID Qty: 90 RF: 0 fentanyl [Duragesic] 25 mcg/hr Patch 72 Hour 1 patch Transdermal Q72H Qty: 5 RF: 0 Continue simvastatin 40 mg Tablet 40 mg PO QPM RF: 0 baclofen 20 mg Tablet 20 mg PO TID RF: 0 diltiazem HCl 120 mg Capsule,Ext.Rel 24h Degradable 120 mg PO DAILY RF: 0 omeprazole 20 mg Capsule,Delayed Release(Dr/Ec) 20 mg PO DAILY RF: 0 albuterol sulfate [Ventolin HFA] 90 mcg/actuation Hfa Aerosol Inhaler 1 puff INHALATION Q4-6H PRN (Reason: Shortness Of Breath) RF: 0 amitriptyline 100 mg Tablet 100 mg PO DAILY RF: 0 fluticasone-vilanterol [Breo Ellipta] 100-25 mcg/dose Blister With Device 1 inh INHALATION DAILY RF: 0 Discontinued clonidine HCl 0.1 mg Tablet 0.1 mg PO HS RF: 0 azithromycin 250 mg Tablet 250 mg PO DAILY RF: 0 oxycodone-acetaminophen 5-325 mg Tablet 1 tab PO QID PRN (Reason: Pain) RF: 0 alprazolam [Xanax] 0.5 mg Tablet 0.5 mg PO BID RF: 0 gabapentin 100 mg Capsule 100 mg PO BID RF: 0 Referrals: Narinder Thayer MD, PhD [Primary Care Provider] - See Instructions Discharge Interventions Interventions: Discharge Planning - Case Management Last Done: 07/30/18 16:02 Status ED Status: Left Department
[2018-07-30] MEDS: Pantoprazole Inj 40 MG Vial IV.PUSH SCH (17:01)
[2018-07-31] MEDS: Acetaminophen 325 MG Tablet PO PRN ×2 (02:05→09:02)
[2018-07-31] MEDS: Baclofen 10 MG Tablet PO SCH (05:45)
[2018-07-31] MEDS: dilTIAZem CD 120 MG Capsule PO SCH (09:00)
[2018-07-31] MEDS: Gabapentin 100 MG Capsule PO SCH ×2 (09:00→12:03)
[2018-07-31] MEDS: Senna/Docusate Sodium 8.6/50 MG Tablet PO SCH ×2 (09:00→09:01)
[2018-07-31] MEDS: guaiFENesin 600 MG ER Tablet PO SCH (09:05)
--- NOTE | 2018-07-31 11:11 | P.DCO ---
Home Health Nursing Order: Medical education, Signs/symptoms of disease process, Medication education-adverse effect and Nursing assessment with vital signs Client Engagement Manager Order: To evaluate: Living conditions/environment and Support services Order: To provide: Community services Case Management Consult Yes I have seen patient Primo Gutierrez on 07/31/18. My clinical findings support the need for the requested home health care services because: Medication compliance is questionable and Impaired cognition/judgement I certify that my clinical findings support that this patient is homebound because: Impaired cognitive ability/safety
--- NOTE | 2018-07-31 12:28 | P.PNPSY ---
Subjective Remarks: The patient was seen today for psychiatric reevaluation. The patient was found calm, cooperative, pleasant. The patient reports that he feels much better today, he says that he has been receiving a great care here in [place], denies pain, denies distress. The patient reports that he made an terrible mistake by overdosing. He clarifies that he was very frustrated with the situation at home with his and [id number]. The patient says that he has been talking with his here in the hospital, they had come to an agreement, he also has concluded that he does not want to , he wants to take advantage of the life that he has left. At this moment the patient reports good mood, denies symptomatology of depression, denies anxiety. He denies suicidal and homicidal ideation, he denies visual and auditory hallucinations. I was able to speak with his , she also feels the patient has learned a lesson and she feels comfortable taking him back home with her was discharged. The patient is fully oriented x3, no attention deficit, no fluctuation of consciousness at this moment. Mental Status Examination Appearance: Appropriate Consciousness: Alert, Lethargic Orientation: x4 Motor Activity: Normal gait Speech: Unremarkable Language: Adequate Fund of Knowledge: Adequate, Inadequate Attention and Concentration: Adequate Memory: Unremarkable Mood: Appropriate Affect: Appropriate Thought Process & Associations: Intact Thought Content: Appropriate Hallucination Type: None Delusion Type: None Suicidal Ideation: No Suicidal Plan: No Suicidal Intention: No Homicidal Ideation: No Homicidal Plan: No Homicidal Intention: No Insight: Fair Judgment: Impulsive Assessment and Plan - Assessment (1) Depressive disorder due to another medical condition with depressive features Code(s): F06.31 - Mood disorder due to known physiological condition with depressive features Status: Acute (2) Adjustment disorder with depressed mood Code(s): F43.21 - Adjustment disorder with depressed mood Status: Acute - Plan Plan: On my psychiatric evaluation today the patient is calm, cooperative, pleasant, logical, coherent and relevant. He denies mood symptoms, denies anxiety, denies ishmael and psychosis. He denies suicidal and homicidal ideation, he denies visual and auditory hallucinations. I have not recommending any medication at this moment. Patient does not meet criteria for involuntary psychiatric admission at this moment. Support, motivational psych education provided. Justification for Continued Inpatient Stay: Please, lift Connors act.
[2018-07-31] MEDS ORDERED: REMOVE DURAGESIC OTHER SCH (21:00)
== END 2018-07-31 12:45 | disposition home health service (06) ==
LOC: NEPC 06:46 → NEDA 09:00 → HIMC 12:20
PROVIDERS: ADMIT Hospitalist; ATTEND Hospitalist